=== PATIENT | female | born 1995 | race Asian ===

== ENCOUNTER 2016-07-13 22:44 | Emergency (ER) | payer BC ==
[~2016-07-13] VITALS: Ht 172.7 cm; Wt 47.5 kg
[2016-07-13 22:48] VITALS: Ht 172.7 cm; Wt 47.5 kg
[2016-07-13] MEDS ORDERED: IBUPROFEN 600 MG TAB PO ONE (23:30)
[2016-07-13] MEDS ORDERED: LIDOCAINE 2% (MDV) 20 ML INJ INJ ONE (23:30)
[2016-07-13] MEDS ORDERED: HYDROmorphONE 1 MG/ML SYG IV STA (23:46)
[2016-07-13] MEDS ORDERED: DICLOFENAC SODIUM 37.5 MG/ML VIAL IV STA (23:47)
--- NOTE | 2016-07-13 23:51 | ERD ---
ER Documentation Chief Complaint Date/Time DATE: 07/13/16 TIME: 23:48 Chief Complaint pain/swelling right 2nd finger x 3 days, denies injury HPI 20-year-old otherwise healthy female presents to the emergency department complaining of right-sided index finger pain, and swelling. Patient states that the pain began 3 days ago when she noticed a small bump on the palmar side of her index finger. She states since that time the bump has continued to swell and is now causing her 8 out of 10 constant throbbing pain which is worse with pressure. Patient has attempted to take Motrin for pain control with only mild relief. Patient denies any fever, nausea, vomiting, chills, abdominal pain , diarrhea. ROS All systems reviewed and are negative except as per history of present illness. Medications Home Meds Active Scripts Bacitracin* (Bacitracin Oint (UD)*) 1 Applic Oint, 1 APPLIC TOP ONCE for 7 Days , PKT APPLY TO Prov:HIMA FRANK PA-C 07/14/16 Cephalexin* (Keflex*) 500 Mg Capsule, 500 MG PO TID for 10 Days, CAP Prov:HIMA FRANK PA-C 07/14/16 Allergies Allergies: Coded Allergies: No Known Drug Allergies (Verified Allergy, Unknown, 07/13/16) PMhx/Soc Medical and Surgical Hx: pt denies Medical Hx, pt denies Surgical Hx Hx Alcohol Use: Yes Hx Substance Use: No Hx Tobacco Use: Yes Smoking Status: Current every day smoker Physical Exam Vitals Vital Signs Date Time Temp Pulse Resp B/P Pulse Ox O2 Delivery O2 Flow Rate FiO2 07/13/16 22:48 97.9 122 18 120/71 97 Physical Exam Const: Well-developed, well-nourished, no acute distress Head: Atraumatic Eyes: Normal Conjunctiva ENT: Normal External Ears, Nose and Mouth. Neck: Full range of motion..~ No meningismus. Resp: Clear to auscultation bilaterally Cardio: Regular rate and rhythm, no murmurs Abd: Soft, non tender, non distended. Normal bowel sounds Skin: 1 cm cyst located on the palmar surface of the right index finger with surrounding erythema. 2 point discrimination intact on radial and ulnar aspects of affected digit. Brisk capillary refill. Tissue warm and well perfused. No evidence of cyanosis. No petechiae or rashes Back: No midline or flank tenderness Ext: No cyanosis, or edema Neur: Awake and alert Psych: Normal Mood and Affect Results 24 hrs Current Medications Medications (Trade) Dose Ordered Sig/Diego Route PRN Reason Start Time Stop Time Status Last Admin Dose Admin Ibuprofen (Motrin) 600 mg ONCE ONCE PO 07/13/16 23:30 07/13/16 23:31 DC Lidocaine (Xylocaine 2% (Mdv) 20 ml) 20 ml ONCE ONCE INJ 07/13/16 23:30 07/13/16 23:31 DC Hydromorphone HCl (Dilaudid) 1 mg ONCE STAT IV 07/13/16 23:46 07/13/16 23:48 DC Diclofenac Sodium (Dyloject) 37.5 mg ONCE STAT IV 07/13/16 23:47 07/13/16 23:48 DC Procedures/MDM Abscess Incision and Drainage with irrigation by me: Location: Right index finger Anesthesia: Local 1% Lidocaine Technique: Irrigated. Disrupted loculations w/ instrumentation Packing: None Complications: Neurovascularly intact post procedure 48 hour wound check. Scar minimization instructions given. Patient's skin symptoms have stabilized while they have been evaluated in the department and are appropriate for outpatient care and work up. Exam and w/u not consistent w/ sepsis, deep space infection, or foreign body. Patient's presentation consistent with atraumatic felon of right second digit. Patient afebrile, normotensive upon arrival. At this time I have low suspicion for severe systemic infection. Patient's sensation remains intact pre-and post procedure. Patient regained range of motion post drainage. She will be discharged with topical and oral antibiotics. Follow-up in 48 hours for wound check. Based on patient's history of present illness and physical examination the decision was made to discharge. The patient was re-evaluated after ED treatment and stabilizing measures, and symptoms have improved. There is no evidence of life threatening injuries or illnesses at this time. On re-examination, patient resting in no distress, stable vital signs, reports feeling better and safe for discharge with outpatient follow up with PMD in 1-2 days. Patient given return precautions. Departure Diagnosis: Primary Impression: Pain of finger Laterality: right Qualified Code: M79.644 - Pain of finger of right hand Additional Impressions: Felon of finger Encounter for incision and drainage procedure HIMA FRANK PA-C Jul 13, 2016 23:50
[2016-07-14] MEDS ORDERED: BACITUD TOP (00:06)
[2016-07-14] MEDS ORDERED: CEPH-443 PO (00:06)
== END 2016-07-14 00:23 | disposition home or self-care (01) ==
LOC: FTE 22:44
DX: M79.644 Pain in right finger(s) (principal); L03.011 Cellulitis of right finger; F17.210 Nicotine dependence, cigarettes, uncomplicated